=== PATIENT | male | born 1945 | race Caucasian/White ===

== ENCOUNTER → 2016-09-22 | Day surgery (SDC) | payer OTHER ==
[2016-09-19 10:58] VITALS: Ht 170.2 cm; Wt 84.1 kg
[~2016-09-22] VITALS: Ht 170.2 cm; Wt 84.1 kg
[~2016-09-22] MED LIST: ATROPINE SULFATE 0.1 MG/ML 5ML SYR IV PRN; BUPIVACAINE 0.5 % 5 MG/1 ML MPF 30ML VIAL ONE; BUPIVACAINE/EPINEPHRINE 0.25% 1:200,000 30 ML VIAL ONE; CEFAZOLIN 2000 MG/60 ML D5W IV SCH; DEXAMETHASONE SOD INJ 4 MG/ML VIAL ONE; EpHEDrine SULFATE INJ 50 MG/ML AMP IV PRN; EpHEDrine SULFATE INJ 50 MG/ML AMP ONE; EpINEphrine INJ 1MG/ML AMP 1 MG/ML AMP ONE; FENTANYL CITRATE INJ 50 MCG/1 ML 2 ML VIAL IV PRN; FENTANYL CITRATE INJ 50 MCG/1 ML 2 ML VIAL ONE; FLUMAZENIL 0.1 MG/1 ML 10 ML VIAL IV PRN; GLYCOPYRROLATE INJ 0.2 MG/ML VIAL ONE; HYDR-5688 PO; HYDROCODONE/ACETAMOPHEN 5/325MG TAB PO PRN; HYDROmorphone INJ 2 MG/ML SYR/VIAL IV PRN; LABETALOL HCL IV 5 MG/ML 20ML IV PRN; LACTATED RINGER'S 1000ML 1,000 ML IV SCH; LIDOCAINE HCL 2% 2 ML VIAL (20MG/ML) ONE; LIDOCAINE/EPINEPHRINE 1% INJ 50 ML VIAL ONE; MEPERIDINE HCL 25 MG/ML CARP IV PRN; MIDAZOLAM HCL 1 MG/ML 2ML VIAL ONE; MoRPHine SULFATE 2 MG/ML CARP IV PRN; MoRPHine SULFATE 4 MG/ML 1 ML CARP\\VIAL IV PRN; NALOXONE HCL 0.4 MG/1 ML VIAL/CARP IV PRN; NEOSTIGMINE METHYLSULFATE 5 MG/5 ML SYR ONE; ONDANSETRON INJ 2 MG/ML 2 ML VIAL IV PRN; ONDANSETRON INJ 2 MG/ML 2 ML VIAL ONE; PHENYLEPHRINE 100MCG/ML 5ML SYR IV PRN; PROPOFOL IV EMULSION 10 MG/ML 20 ML VIAL IV ONE; Pt states none; ROCURONIUM BROMIDE 10 MG/ML 5 ML VIAL ONE; ROPIVACAINE 0.5% 5 MG/ML 30 ML VIAL ONE; SODIUM CHLORIDE 0.9% 1000ML 1,000 ML IV SCH; SODIUM CHLORIDE 0.9% INJ 10 ML VIAL ONE
--- NOTE | 2016-09-22 06:49 | History & Physical Bridge Note ---
H&P Re-Evaluation Bridge Note: I have examined the patient, reviewed the History & Physical and in the interval since the performance of the History & Physical I have noted the following changes of clinical significance: No changes noted
--- NOTE | 2016-09-22 13:43 | [facility] Post Operative Brief Note ---
Immediate Operative Summary Operative Date Sep 22, 2016. Pre-Operative Diagnosis Left Shoulder Rotator Cuff Tear Post-Operative Diagnosis supraspinatus and subscapularis Procedure(s) Performed Left Shoulder Arthroscopic Rotator Cuff Repair, Biceps Tenodesis, Subacromial Decompression, coracoplasty Surgeon Dr. Dowling Wheel Tuner Surgeon(s) César Rasmussen MD Estimated Blood Loss 20 ml Findings as above Specimens None Drains 0 Anesthesia general with interscalene block Complication(s) None Disposition Recovery Room / PACU
--- NOTE | 2016-09-22 14:03 | Discharge Instructions-SurgCtr ---
Discharge Instructions Visit Reason for Visit: Left Shoulder Rotator Cuff Tear Discharge Discharge Diagnosis / Problem: status post left rotato cuff repair Discharge Goals Goal(s): Decrease discomfort, Improve function, Increase independence Activity Recommendations Activity Limitations: per Instructions/Follow-up section Anesthesia . Post Anesthesia Instructions: If you have had General Anesthesia or IV Sedation: * Do not drive today. * Resume driving when surgeon permits. * Do not make important decisions or sign legal documents today. * Call surgeon for: 1. Temperature elevations greater than 101 degrees F. 2. Uncontrollable pain. 3. Excessive bleeding. 4. Persistent nausea and vomiting. 5. Medication intolerance (nausea, vomiting or rash). * For nausea and vomiting use only clear liquids such as: tea, soda, bouillon until nausea subsides, then gradually increase diet as tolerated. * If you have any concerns or questions, call your surgeon's office. If physician is unavailable and it is an emergency, call 911 or go to the nearest emergency room. . Instructions / Follow-Up Instructions / Follow-Up The following are instructions to follow after "Shoulder Surgery" including, Acromioplasty, Rotator Cuff Repair and Instability Surgery ACTIVITY RECOMMENDATIONS: * Minimize activity after surgery. * No excessive walking, jogging, sports or laboring. * Return to activity is individualized depending on the patient and type of surgery. * Driving is not permitted until at least your first post operative visit. Please ask your doctor when it is safe to resume driving. * Expect increased discomfort with increased activity. Continue to ice the shoulder as needed. SCHOOL/WORK RECOMMENDATIONS: * You may return to sedentary work or school when you are feeling more comfortable. This is usually 3-7 days after surgery. MEDICATIONS: * You will have a prescription for pain medication and an anti-inflammatory medication after surgery. * Use the pain medication for severe pain and the anti-inflammatory for less severe pain. Once the pain medication has run out, try to use the anti-inflammatory medication. If this is not effective, contact the office for assistance. * The pain medication may cause nausea, constipation and drowsiness. You should see how they affect you before driving or similar activity. * The anti-inflammatory medication may cause stomach upset and bleeding. If this occurs let your doctor know immediately . * Take a stool softener like Colace or a laxative like Senokot to prevent constipation. DIET: * Resume previous diet. SPECIAL CARE: ICE: You have the option of an ice cooler, gel packs or ice bags. * If you have an ice cooler, refer to the instructions for that device. The ice cooler may be used continuously. * If you do not have an ice cooler, you will need to use ice bags or gel packs. Do not apply ice directly to the skin. Use a thin dressing or sachin shirt between the skin and ice bag. Apply ice for 20-30 minutes and repeat every 2-4 hours. This is especially important for the first 7-10 days after surgery. Once the pain improves, use ice as needed. ELEVATION: * You may be more comfortable sleeping in an upright position. Use the sling to elevate your arm. DRESSING: * Your dressing will be changed at your first therapy appointment approximately 4-5 days after surgery. Band-aids, tape strips or gauze may be applied. You may then change your dressing daily. * Reapply dressing followed by the EBIce cooling pad (if chosen) and then the sling. * Always wash your hands prior to touching the incision area. * Once the stitches are removed, you may leave the wound open to air or cover with gauze. * Expect some bloody drainage for the first few days after surgery. * Leave the tape strips, if present, in place for 5-7 days. * Band-aids and gauze may be changed daily. * There may be a gauze pad in your armpit area. This can be changed daily or replaced by a dry washcloth. SLING/BRACE: * You will need to use a sling or brace after surgery. The length of time the sling is used is dependent upon the type of surgery performed. * Arthroscopic Acromioplasty requires use of the sling for 2-4 weeks for comfort. * Labral procedures and Rotator Cuff Repairs require use of the sling for a longer period of time. Please check with your doctor prior to discontinuing the sling. BATHING: * You may shower or sponge-bathe immediately after surgery. The post operative shoulder dressing is mostly water-tight. You may shower right over this dressing, but be reasonably careful not to get the gauze or incision wet. * Once the dressing has been changed on the fourth or fifth day after surgery, you may shower and get the incision wet. * Wash with regular soap and water. * Do not bathe (submerge the incision), soak, swim or use a hot tub until the incision is completely healed over with normal skin and the doctor has given the OK to proceed. * There is no need to apply any ointments, powders or salves to your incision. * Do not apply alcohol or hydrogen peroxide directly to the incision. * Diluted peroxide (50:50 mixture with sterile saline) may be used to clean dried blood from around the incision area. THERAPY: * You will begin therapy four or five days after surgery. * Organized therapy with the therapist is important for the first 2-4 months after surgery depending on the type of procedure. During that time you will attend therapy 1-3 times per week. * You will also need to do daily exercises for range of motion and strength as instructed. * Patients who have a Capsular Shift Procedure will need to abide by temporary range of motion limitations. * Patients having Rotator Cuff Surgery are not allowed to actively lift their arms until 4-6 weeks after surgery. * Please check with your doctor regarding appropriate motion restrictions. FOLLOW UP VISIT: * If not already scheduled, please call the office at to schedule a follow-up appointment for 10 days after surgery and monthly thereafter. * Follow up for physical therapy on 09/26/16 at 10.30 am * Follow up with Dr. Dowling on 10/04/16 at 10.15 am Diet Recommendations Home Diet: no limitations, resume previous diet Procedures Procedures Performed: Left Shoulder Arthroscopic Rotator Cuff Repair, Biceps Tenodesis, Subacromial Decompression, coracoplasty Pending Studies Studies pending at discharge: no Medical Emergencies . Who to Call and When: Medical Emergencies: If at any time you feel your situation is an emergency, please call 911 immediately. . Non-Emergent Contact Non-Emergency issues call your: Surgeon Call Non-Emergent contact if: you have a fever, your pain is not controlled, wound has increased drainage . . "Provider Documentation" section prepared by Shiraz Viera.
--- NOTE | 2016-09-22 14:05 | [facility] Operative Report ---
Operative Report Operative Date Sep 22, 2016. Pre-Operative Diagnosis Left Shoulder Rotator Cuff Tear Post-Operative Diagnosis supraspinatus and subscapularis Procedure(s) Performed Left Shoulder Arthroscopic Rotator Cuff Repair, Biceps Tenodesis, Subacromial Decompression, coracoplasty Surgeon Dr. Dowling Drum Sander Setter Surgeon(s) César Rasmussen MD Estimated Blood Loss 20 ml Specimens None Complication(s) None Disposition PCU I attest to the content of the Intraoperative Record and any orders documented therein. Any exceptions are noted below.
[2016-09-22 14:45] VITALS: TEMP 36.7
--- NOTE | 2016-09-22 15:17 | Anesthesia Progress Nt - [facility] ---
Anesthesia Post Op Note Date & Time Sep 22, 2016 at 15:17 Vital Signs Pain Intensity: 4 Vital Signs Past 12 Hours Date Time Temp Pulse Resp B/P Pulse Ox O2 Delivery O2 Flow Rate FiO2 09/22/16 15:11 69 16 111/71 94 Room Air 09/22/16 14:45 36.7 70 18 105/67 96 Room Air 09/22/16 14:31 70 10 95 09/22/16 14:31 71 10 09/22/16 14:30 71 9 96 09/22/16 14:30 71 9 09/22/16 14:28 117/72 09/22/16 14:25 69 24 91 09/22/16 14:25 70 24 09/22/16 14:25 36.9 72 18 117/72 95 Room Air 09/22/16 14:24 72 20 94 09/22/16 14:24 71 20 09/22/16 14:23 121/70 09/22/16 14:19 70 30 92 09/22/16 14:19 71 30 09/22/16 14:18 120/68 09/22/16 14:15 71 15 95 09/22/16 14:15 71 15 09/22/16 14:13 109/64 09/22/16 14:10 69 20 09/22/16 14:10 69 20 100 09/22/16 14:08 128/72 09/22/16 14:05 72 18 99 09/22/16 14:05 71 18 09/22/16 14:04 74 14 09/22/16 14:04 73 14 99 09/22/16 13:59 75 26 98 09/22/16 13:59 75 26 09/22/16 13:58 118/73 09/22/16 13:56 36.5 73 20 119/76 99 Mask 8 09/22/16 13:55 119/76 09/22/16 09:24 0 09/22/16 09:24 0 09/22/16 09:19 54 10 09/22/16 09:19 54 10 97 09/22/16 09:18 117/72 09/22/16 09:14 53 14 97 09/22/16 09:14 53 14 09/22/16 09:13 111/78 09/22/16 09:09 54 13 97 09/22/16 09:09 54 13 09/22/16 09:08 112/76 09/22/16 09:04 54 11 97 09/22/16 09:04 54 11 09/22/16 09:03 111/75 09/22/16 09:01 58 21 09/22/16 09:01 56 21 96 09/22/16 08:58 107/71 09/22/16 08:56 54 8 97 09/22/16 08:56 53 8 09/22/16 08:54 113/81 09/22/16 08:51 58 17 97 09/22/16 08:51 57 17 09/22/16 08:48 104/79 09/22/16 08:46 55 12 09/22/16 08:46 56 12 97 09/22/16 08:43 122/83 09/22/16 08:41 58 44 09/22/16 08:41 57 44 96 09/22/16 08:38 119/74 09/22/16 08:36 54 14 09/22/16 08:36 54 14 96 09/22/16 08:33 112/79 09/22/16 08:31 58 25 09/22/16 08:31 58 25 96 09/22/16 08:28 121/76 09/22/16 08:26 56 24 96 09/22/16 08:26 56 24 09/22/16 08:23 111/75 09/22/16 08:21 55 19 96 09/22/16 08:21 56 19 09/22/16 08:18 123/82 09/22/16 08:16 57 11 09/22/16 08:16 58 11 96 09/22/16 08:13 122/77 09/22/16 08:11 59 15 96 09/22/16 08:11 59 15 09/22/16 08:08 113/72 09/22/16 08:06 60 18 09/22/16 08:06 60 18 97 09/22/16 08:03 116/81 09/22/16 08:01 57 25 09/22/16 08:01 56 25 96 09/22/16 07:58 101/76 09/22/16 07:56 56 17 97 09/22/16 07:56 56 17 09/22/16 07:53 121/82 09/22/16 07:51 51 14 97 09/22/16 07:51 51 14 09/22/16 07:48 119/81 09/22/16 07:46 58 19 96 09/22/16 07:46 58 19 09/22/16 07:44 137/97 09/22/16 07:41 55 09/22/16 07:41 54 96 09/22/16 07:36 55 97 09/22/16 07:36 56 09/22/16 07:35 57 09/22/16 07:35 57 96 09/22/16 07:30 54 09/22/16 07:30 54 96 09/22/16 07:25 55 09/22/16 07:25 56 97 09/22/16 07:20 55 09/22/16 07:20 54 95 09/22/16 07:15 55 09/22/16 07:15 55 96 09/22/16 07:10 56 09/22/16 07:10 57 97 09/22/16 06:40 36.8 61 16 142/86 96 Room Air Notes Mental Status: alert / awake / arousable, participated in evaluation Pt Amnestic to Procedure: Yes Nausea / Vomiting: adequately controlled Pain: adequately controlled Airway Patency, RR, SpO2: stable & adequate BP & HR: stable & adequate Hydration State: stable & adequate Anesthetic Complications: no major complications apparent
[2016-09-22 15:48] VITALS: BP 111/67; PULSE 71; O2SAT 94
--- NOTE | 2016-09-23 02:17 | OPERATIVE REPORT ---
DATE OF OPERATION: 09/22/2016 PREOPERATIVE DIAGNOSES: Left shoulder supraspinatus tear, biceps tendon subluxation, possible the subscapularis tear. POSTOPERATIVE DIAGNOSES: The biceps tendon subluxation 1.5 cm tear, upper border subscapularis, 2 to 2.5 cm tear of the supraspinatus extending into the leading edge of the infraspinatus. PROCEDURE: Left shoulder arthroscopy, limited debridement, biceps tenodesis, coracoplasty, arthroscopic double row repair of the supraspinatus and infraspinatus tendon and a mini open biceps tenodesis and repair of the subscapularis. Arthroscopic subacromial decompression and debridement of undersurface AC joint osteophytes. SURGEON: Dr. Dowling. PAINT PREPARER: Shiraz Voss, Fellow. No PA available. ANESTHESIA: Laryngeal mask with interscalene block. INDICATIONS OF PROCEDURE: The patient is a 70-year-old male with at least a 2-year history of left shoulder pain, status post an injury. MRI has diagnosed a medium rotator cuff tear. Options were discussed and he elected to proceed with operative intervention. PROCEDURE IN DETAIL: Informed consent was obtained. The patient was identified as Tino Espinal. He identified the operative site as the left shoulder. I marked it with my initials. A preop surgical timeout was performed. A preop dose of IV antibiotics was given. He was taken to the operating room and positioned supine on the operating room table. The anesthetic was administered along with the interscalene block. He was then positioned beach chair. The neck was held in neutral alignment. The [employer] body positioner and Trimano arm holders were utilized. The torso was secured to the table. Examination revealed grade 1 translation of the shoulder, front and back, and full and equal range of motion. 1% lidocaine with epinephrine was injected into the subacromial space, approximately 10 mL. The left upper extremity was then prepped and draped in the usual sterile fashion. The axilla was excluded from the surgical field with a Ioban drape. After the arthroscopic portion of the procedure, the shoulder was re-prepped and the surgeon changed his glove. DVT prophylaxis, intraoperatively with foot pumps, postoperatively early mobility. Posterior soft spot viewing portal was established followed by an anterior mid glenoid working portal. Diagnostic arthroscopy was performed. There was some grade 2 chondrosis of a small area, perhaps the size of a nickel, on the humeral head. There was global labral degeneration, which was debrided. The frayed portion of the labrum was debrided. A medium sized tear of the supraspinatus, likely extending into the infraspinatus, was noted. The subscapularis was noted to have a tear along its upper border. The biceps was released. The middle and inferior glenohumeral ligaments and capsule looked normal. There was a degenerative type 1 SLAP lesion present. There was fraying of the posterior superior labrum, which was debrided. The posterior capsule was normal. The scope was placed anterior to visualize the posterior structures. The glenoid showed, perhaps, grade 1 diffuse changes. The axillary pouch, bare area and posterior surface of the humerus were intact. The capsule was normal. The scope was then placed in the subacromial space and an accessory lateral portal was created. Subacromial bursectomy was performed. An additional anterolateral portal was established. A rotator cuff tear, involving the supraspinatus that was between 2 and 2.5 cm in size, was noted. This was a crescent tear with a posterior delamination involving the infraspinatus. There was a prominent excrescence on the anterior portion of the greater tuberosity. This was debrided with the bur and the bony bed was completely denuded of soft tissue with a shaver, curette and debrided with the bur as well. Two 5.5-0mm PEEK corkscrew anchors were inserted, one at the junction of the middle and posterior third and one at the junction of the middle and anterior third of the tear. These were located just lateral to the articular cartilage margin and placed at an angle of about 30 degrees to the long axis of the bone. These were placed in a percutaneous fashion. Horizontal mattress sutures were then applied, using either a scorpion suture passer or a shallow crescent hook suture shuttle. Care was taken to incorporate the posterior delamination with the posterior suture anchor. This was done additionally with the use of a traction stitch on the undersurface delamination. All sutures were passed in a horizontal mattress fashion and then tied in a tension free fashion, using a modified Mcnairy knot backed up with reverse half hitches on alternating posts. A lateral row anchor was inserted. This was a 5.5 mm SwiveLock anchor, which was applied about a centimeter distal to the edge of the greater tuberosity. This resulted in a secure anatomic repair. There was a small dog ear, which was tied down posteriorly with the central retaining stitch from the SwiveLock. The undersurface of the acromion was denuded of soft tissue and a modified cutting block acromioplasty was performed. There was significantly thickened tissue on the undersurface of the acromion, consistent with chronic impingement. About 3 to 4 mm of anterior bone was removed, smoothed from back to front and side to side, lateral overhang was debrided. The coracoacromial ligament was released. I identified the AC joint and using a shaver and cold cut, exposed the undersurface of the AC joint where there was a large spur. This spur was removed with the shaver and also any spurring on the acromial facet. The patient did not have AC joint pain preoperatively, but this large spur may have impacted on his rotator cuff. The shaver was run through the shoulder to grape picker loose debris. [employer] photographs were obtained. The portals were then stitched close, the surgeon changed gloves and then the shoulder was re-prepped with ChloraPrep. The anterior incision was lengthened about 6 to 7 cm. Blunt dissection was performed down to the subcutaneous tissues, a large transversing vein was electrocauterized. The fat stripe was noted and opened, exposing the deltopectoral interval. The cephalic vein was retracted medially with up pectoralis tendon. The clavipectoral fascia was incised. The upper 1 cm of the conjoined tendon was released. The tip of the coracoid was exposed and then obliquely resected with a saw and beveled with a rasp. A thorough subacromial bursectomy was performed. The bicipital groove was identified and opened, the biceps tendon was retrieved. The bicipital groove was prepared down to a bed of bleeding bone with a curette and rongeur and then a tenodesis was performed at the proper length and tension relationship, using a single 4.5-mm PEEK corkscrew anchor. The biceps itself appeared to be normal. The in situ tear involving the upper 1.5 to 2 cm of the subscapularis tendon was noted. The rotator interval was released and some adhesions on the anterior surface of the tendon were divided. The tear was not retracted. The bone bed of the lesser tuberosity was prepared with a curette and rongeur down to an exposed bed of bleeding bone. A single 5.5 mm PEEK corkscrew anchor was inserted and the subscapularis was repaired using 2 horizontal mattress stitches. I then tied the bicipital fascia to the lateral margin of the subscapularis covering over the biceps tendon. #1 Vicryl was used to do this as well as reapproximate the subscapularis and supraspinatus laterally. Copious irrigation was performed. Meticulous hemostasis was done with electrocautery. The retractors were removed and the deltopectoral interval was closed using running #1 Vicryl, the skin was closed with 2-0 Vicryl and boris for the skin layer. A soft sterile dressing was applied with an ABD in the armpit along with an UltraSling. The patient was awakened from anesthesia without difficulty, taken to recovery in stable condition. There were no specimens or complications. Counts were correct at the end of case. Blood loss was approximately 50 mL. At the conclusion of the operation, I spoke to the patient's family and informed them of my findings. Detailed postoperative instructions were given. He can be rehabilitated according to the rotator cuff repair protocol. He will need to do passive movement of the elbow and shoulder for 6 weeks. External rotation will be restricted to neutral for the first 4-6 weeks. I attest to the content of the Intraoperative Record and any orders documented therein. Any exceptio ns are noted below.
== END | disposition home or self-care (01) ==
LOC: X.SURG 06:30
PROVIDERS: ATTEND Physical Medicine & Rehabilitation Sports Medicine
DX: M75.112 Incomplete rotator cuff tear or rupture of left shoulder, not specified as traumatic (principal); M66.822 Spontaneous rupture of other tendons, left upper arm; M25.70 Osteophyte, unspecified joint; C61 Malignant neoplasm of prostate; M35.3 Polymyalgia rheumatica; Z85.828 Personal history of other malignant neoplasm of skin; Z98.890 Other specified postprocedural states

== ENCOUNTER → 2016-10-04 | Outpatient (CLI) | payer OTHER ==
[~2016-10-04] MED LIST changes: -ATROPINE SULFATE 0.1 MG/ML 5ML SYR IV PRN; -BUPIVACAINE 0.5 % 5 MG/1 ML MPF 30ML VIAL ONE; -BUPIVACAINE/EPINEPHRINE 0.25% 1:200,000 30 ML VIAL ONE; -CEFAZOLIN 2000 MG/60 ML D5W IV SCH; -DEXAMETHASONE SOD INJ 4 MG/ML VIAL ONE; -EpHEDrine SULFATE INJ 50 MG/ML AMP IV PRN; -EpHEDrine SULFATE INJ 50 MG/ML AMP ONE; -EpINEphrine INJ 1MG/ML AMP 1 MG/ML AMP ONE; -FENTANYL CITRATE INJ 50 MCG/1 ML 2 ML VIAL IV PRN; -FENTANYL CITRATE INJ 50 MCG/1 ML 2 ML VIAL ONE; -FLUMAZENIL 0.1 MG/1 ML 10 ML VIAL IV PRN; -GLYCOPYRROLATE INJ 0.2 MG/ML VIAL ONE; -HYDROCODONE/ACETAMOPHEN 5/325MG TAB PO PRN; -HYDROmorphone INJ 2 MG/ML SYR/VIAL IV PRN; -LABETALOL HCL IV 5 MG/ML 20ML IV PRN; -LACTATED RINGER'S 1000ML 1,000 ML IV SCH; -LIDOCAINE HCL 2% 2 ML VIAL (20MG/ML) ONE; -LIDOCAINE/EPINEPHRINE 1% INJ 50 ML VIAL ONE; -MEPERIDINE HCL 25 MG/ML CARP IV PRN; -MIDAZOLAM HCL 1 MG/ML 2ML VIAL ONE; -MoRPHine SULFATE 2 MG/ML CARP IV PRN; -MoRPHine SULFATE 4 MG/ML 1 ML CARP\\VIAL IV PRN; -NALOXONE HCL 0.4 MG/1 ML VIAL/CARP IV PRN; -NEOSTIGMINE METHYLSULFATE 5 MG/5 ML SYR ONE; -ONDANSETRON INJ 2 MG/ML 2 ML VIAL IV PRN; -ONDANSETRON INJ 2 MG/ML 2 ML VIAL ONE; -PHENYLEPHRINE 100MCG/ML 5ML SYR IV PRN; -PROPOFOL IV EMULSION 10 MG/ML 20 ML VIAL IV ONE; -ROCURONIUM BROMIDE 10 MG/ML 5 ML VIAL ONE; -ROPIVACAINE 0.5% 5 MG/ML 30 ML VIAL ONE; -SODIUM CHLORIDE 0.9% 1000ML 1,000 ML IV SCH; -SODIUM CHLORIDE 0.9% INJ 10 ML VIAL ONE
== END | disposition home or self-care (01) ==
LOC: C.RDSM 10-03 10:30
PROVIDERS: ATTEND Physical Medicine & Rehabilitation Sports Medicine
DX: M75.102 Unspecified rotator cuff tear or rupture of left shoulder, not specified as traumatic (principal)

== ENCOUNTER → 2016-10-07 | Outpatient (CLI) | payer OTHER ==
--- NOTE | 2016-10-12 12:58 | CODING QUERY MEDICAL NECESSITY ---
SUPPORTING DIAGNOSIS NEEDED A supporting diagnosis is required for the test/procedure performed on this patient in order for us to be reimbursed by the patient's insurance. Please provide a supporting diagnosis for the following test/procedure listed below next to the test name along with your signature. *If there is no additional diagnosis for this patient that would support the following test/procedure please document that below next to the test/procedure. Test(s)/Procedure(s) that require a supporting diagnosis: * PSA DIAGNOSIS: * DOS: 10/07/16 Provider Signature: Date: Thank you Ara Alcocer [employer] Once completed, please kindly fax back to [phone] For questions please call [phone]
== END | disposition home or self-care (01) ==
LOC: C.LAB 08:59
PROVIDERS: ATTEND Surgery
DX: R39.198 Other difficulties with micturition (principal); C61 Malignant neoplasm of prostate; R97.20 Elevated prostate specific antigen [PSA]

== ENCOUNTER → 2016-10-20 | Outpatient (CLI) | payer OTHER ==
[2016-10-20 09:42] LABS: BLOOD UREA NITROGEN 21 mg/dl (7-18); BUN/CREATININE RATIO 18.7 (10-20); CALCIUM 9.1 mg/dl (8.5-10.1); CARBON DIOXIDE 26 mmol/L (21-32); CHLORIDE 104 mmol/L (98-107); GLUCOSE 99 mg/dl (70-99); POTASSIUM 3.9 mmol/L (3.5-5.1); SODIUM 137 mmol/L (136-145)
[2016-10-20 09:56] LABS: ESTIMATED AVERAGE GLUCOSE 117 mg/dl; HA1C FLAG Normal (Normal)
--- NOTE | 2016-10-24 13:30 | CODING QUERY MEDICAL NECESSITY ---
SUPPORTING DIAGNOSIS NEEDED A supporting diagnosis is required for the test/procedure performed on this patient in order for us to be reimbursed by the patient's insurance. Please provide a supporting diagnosis for the following test/procedure listed below next to the test name along with your signature. *If there is no additional diagnosis for this patient that would support the following test/procedure please document that below next to the test/procedure. Test(s)/Procedure(s) that require a supporting diagnosis: DOS 10/20 * Hba1c DIAGNOSIS: Provider Signature: Date: Thank you Makeda Johnson Health Information Management Once completed, please kindly fax back to [phone] For questions please call [phone]
== END | disposition home or self-care (01) ==
LOC: C.LAB 07:34
PROVIDERS: ATTEND Internal Medicine
DX: E88.81 Metabolic syndrome and other insulin resistance (principal); E11.9 Type 2 diabetes mellitus without complications

== ENCOUNTER → 2016-10-31 | Outpatient (CLI) | payer OTHER ==
--- NOTE | 2016-10-31 16:16 | DIAGNOSTIC IMAGING REPORT ---
CHEST 2 VIEWS ROUTINE CLINICAL HISTORY: COUGH dyspnea COMPARISON STUDY: 10/03/2012 FINDINGS: The bones soft tissues and hemidiaphragms are normal. The cardiomediastinal silhouette is normal. The lungs are clear. The pulmonary vasculature is normal. IMPRESSION: Negative chest. Electronically signed by: Anil Jernigan M.D. 10/31/2016 4:15 PM Dictated Date/Time: 10/31/2016 4:14 PM
== END | disposition home or self-care (01) ==
LOC: C.RAD 15:47
PROVIDERS: ATTEND Internal Medicine
DX: R05 Cough (principal)

== ENCOUNTER → 2017-03-15 | Outpatient (CLI) | payer OTHER ==
[2017-03-15 13:19] VITALS: BP 126/81; PULSE 68; TEMP 37; O2SAT 96
--- NOTE | 2017-03-15 17:33 | Radiation Oncology Follow-Up ---
Radiation Oncology Follow-Up Date of Visit Mar 15, 2017. Reason For Visit Annual follow-up Radiation Completion Date Hormonal suppression and RT 08/01/13 Diagnosis (1) Prostate cancer Status: Resolved Onset Date: 08/29/2011 Location: prostate with extension to seminal vesicles Histology Subtype: adenocarcinoma Stage: lll Permanent Comment: Rising PSA Biopsy-positive for adenocarcinoma the prostate, Mariola grade 4+5, clinical stage TIc Biopsy stage T2b Status post robotic-assisted laparoscopic radical prostatectomy with left-sided pelvic lymph node dissection an attempted right sided pelvic lymph node dissection, adenocarcinoma of the prostate with Mariola 4+5, extraprostatic extension, seminal vesicle invasion, perineural invasion, Pathologic stage [id number] Status post hormone suppression for 6 months Status post completion of radiation therapy 08/01/2013 received 7000 cGy Last Edited By: Lizbeth Mcdaniel on Mar 13, 2015 07:43 Interim History He's been doing well over this past year. He denies any changes in his urinary status. His AUA score was 11. Last year his score was 8. He completed expanded prostate cancer index composite for clinical practice and gave a score of 4 out of 12 in urinary incontinence symptoms. He gave a score of 2 of 12 and urinary irritation symptoms. He gave a score of 0 12 and bowel symptoms. He gave a score for of 12 and sexual symptoms. He gave a score of 0 of 12 in hormonal vitality symptoms. His total was 10 of 60. His PSAs continue to be undetectable. Most recent PSA was 10/07/2016 and was less than 0.010. Allergies Coded Allergies: No Known Allergies (Verified , `, 09/22/16) Home Medications Miscellaneous Medications [Pt states none] Review of Systems Gastrointestinal: Symptoms: WNL GI Comments: No fiber supplements Oral: Symptoms: No Problems Respiratory: Symptoms: WNL Urinary: Symptoms: WNL, Incontinence Comments: 1 void/night;Doesn't feel he always empties bladder; Skin: Symptoms: No Problems Physical Exam Vital Signs Date Time Temp Pulse Resp B/P (MAP) Pulse Ox O2 Delivery O2 Flow Rate FiO2 03/15/17 13:19 37.0 68 24 126/81 96 Fatigue: None General Appearance: no apparent distress Eyes: normal inspection, EOMI ENT: normal ENT inspection, hearing grossly normal Neck: no adenopathy, thyroid normal Respiratory/Chest: lungs clear, no respiratory distress, no accessory muscle use Cardiovascular: regular rate, rhythm, no gallop, no murmur Abdomen: non tender, soft Anal / Rectum: Normal sphincter tone. Prostate bed is flat. No rectal masses no rectal bleeding. Extremities: no pedal edema Neurologic/Psychiatric: no motor/sensory deficits, alert, normal mood/affect Skin: warm/dry Laboratory Studies Test 03/15/17 14:00 Prostate Specific Antigen < 0.010 ng/ml (0.000-4.000) Assessment & Plan Plan: A PSA was drawn today. He'll be notified as to results. Continue regular follow-up with Dr. Xavier and his primary care physician. We asked him to return to our office in 1 year. He may call if he has any questions or concerns in the interim. He is due for follow-up DEXA scanning. I will be reviewed with him and scheduled accordingly. Total Time In Follow-Up I spent 20 minutes speaking to the patient and performing examination. I spent 15 minutes reviewing information and completing this note Copy To Humphrey Xavier MD, Urology; Ponce Monique M.D.
== END | disposition home or self-care (01) ==
LOC: C.ONC 13:07
PROVIDERS: ATTEND Physician Assistant Medical
DX: Z08 Encounter for follow-up examination after completed treatment for malignant neoplasm (principal); Z92.3 Personal history of irradiation; Z85.46 Personal history of malignant neoplasm of prostate

== ENCOUNTER → 2017-03-17 | Outpatient (CLI) | payer OTHER ==
[~2017-03-17] MED LIST changes: -HYDR-5688 PO
== END | disposition home or self-care (01) ==
LOC: C.RDSM 12:50
PROVIDERS: ATTEND Physical Medicine & Rehabilitation Sports Medicine
DX: M25.561 Pain in right knee (principal); M25.562 Pain in left knee

== ENCOUNTER → 2017-03-30 | Outpatient (CLI) | payer OTHER | END | disposition home or self-care (01) | LOC: C.MAMM 09:53 | PROVIDERS: ATTEND Physician Assistant Medical | DX: C61 Malignant neoplasm of prostate (principal); M85.89 Other specified disorders of bone density and structure, multiple sites; E34.9 Endocrine disorder, unspecified ==

== ENCOUNTER → 2017-09-04 | Outpatient (CLI) | payer OTHER | END | disposition home or self-care (01) | LOC: C.RDSM 12:44 | PROVIDERS: ATTEND Physical Medicine & Rehabilitation Sports Medicine | DX: R22.30 Localized swelling, mass and lump, unspecified upper limb (principal) ==

== ENCOUNTER → 2017-09-07 | Day surgery (SDC) | payer OTHER ==
[2017-08-29 08:43] VITALS: Ht 170.2 cm; Wt 79.1 kg
[~2017-09-07] VITALS: Ht 170.2 cm; Wt 79.1 kg
[~2017-09-07] MED LIST changes: +ATROPINE SULFATE 0.1 MG/ML 5ML SYR IV PRN; +CEFAZOLIN 1000MG IV PUSH 5 ML IV SCH; +EpHEDrine SULFATE INJ 50 MG/ML AMP IV PRN; +FENTANYL CITRATE INJ 50 MCG/1 ML 2 ML VIAL IV PRN; +FENTANYL CITRATE INJ 50 MCG/1 ML 2 ML VIAL ONE; +HYDROCODONE/ACETAMOPHEN 5/325MG TAB PO PRN; +LACTATED RINGER'S 1000ML 1,000 ML IV SCH; +LIDOCAINE HCL 2% 2 ML VIAL (20MG/ML) ONE; +MIDAZOLAM HCL 1 MG/ML 2ML VIAL ONE; +ONDANSETRON INJ 2 MG/ML 2 ML VIAL IV PRN; +PROPOFOL IV EMULSION 10 MG/ML 20 ML VIAL IV ONE; -Pt states none
[2017-09-07] MEDS: LIDOCAINE/EPINEPHRINE 1% 20 ML VIAL ONE ×2 (06:34→07:50)
--- NOTE | 2017-09-07 06:57 | Discharge Instructions-SurgCtr ---
Discharge Instructions Date of Service Sep 07, 2017. Visit Reason for Visit: Left Carpal Tunnel Syndrome; Ring Finger Mass Discharge Discharge Diagnosis / Problem: left carpal tunnel syndrome Discharge Goals Goal(s): Decrease discomfort, Improve function Activity Recommendations Activity Limitations: per Instructions/Follow-up section Lifting Limitations: none Exercise/Sports Limitations: none Shower/Bathe: may shower/bathe in 3 days Weightbearing Status: Left non-weightbearing Anesthesia . Post Anesthesia Instructions: If you have had General Anesthesia or IV Sedation: * Do not drive today. * Resume driving when surgeon permits. * Do not make important decisions or sign legal documents today. * Call surgeon for: 1. Temperature elevations greater than 101 degrees F. 2. Uncontrollable pain. 3. Excessive bleeding. 4. Persistent nausea and vomiting. 5. Medication intolerance (nausea, vomiting or rash). * For nausea and vomiting use only clear liquids such as: tea, soda, bouillon until nausea subsides, then gradually increase diet as tolerated. * If you have any concerns or questions, call your surgeon's office. If physician is unavailable and it is an emergency, call 911 or go to the nearest emergency room. . Instructions / Follow-Up Instructions / Follow-Up DIET: * Resume previous diet. MEDICATIONS: * Please take your prescriptions as instructed at your pre-op appointment and/ or see medication discharge instructions listed above. * If concerns develop, call your physician's office at . SPECIAL CARE INSTRUCTIONS: * Ice/Elevate as instructed. * Keep dressing clean, dry, intact. * Your surgical extremity may be discolored due to prepping agents used on the skin. A bluish-green tint is a normal variant and should not cause alarm. Call your doctor at [phone] if: * Temperature above 101 degrees * Pain not relieved by pain medicine ordered * There is increased drainage or redness from any incision * You have any unanswered questions, problems or concerns. FOLLOW UP VISIT: * If not already scheduled, please call the office at to schedule a follow-up appointment. Diet Recommendations Home Diet: no limitations, resume previous diet Pending Studies Studies pending at discharge: no Medical Emergencies . Who to Call and When: Medical Emergencies: If at any time you feel your situation is an emergency, please call 911 immediately. . Non-Emergent Contact Non-Emergency issues call your: Primary Care Provider . . "Provider Documentation" section prepared by Edmundo Montes. .
[2017-09-07] MEDS: BUPIVACAINE/EPINEPHRINE 0.5% MPF 1:200,000 30 ML VIAL ONE ×2 (07:50→07:51)
--- NOTE | 2017-09-07 07:53 | [facility] Post Operative Brief Note ---
Immediate Operative Summary Operative Date Sep 07, 2017. Pre-Operative Diagnosis Left Carpal Tunnel Sydrome, Left Ring Finger Mass Post-Operative Diagnosis same Procedure(s) Performed Left Carpal Tunnel Release; Left Ring Finger Mass Excision Surgeon Dr. Dowling Lift Team Technician Surgeon(s) Dr. Montes Estimated Blood Loss 1 Findings as above Specimens A) Foreign Body Left Ring Finger Anesthesia local with IV sedation Disposition Recovery Room / PACU
[2017-09-07 08:00] VITALS: TEMP 36.4
[2017-09-07 08:32] VITALS: BP 112/71; PULSE 50; O2SAT 100
--- NOTE | 2017-09-07 08:39 | Anesthesia Progress Nt - [facility] ---
Anesthesia Post Op Note Date & Time Sep 07, 2017 at 08:39 Vital Signs Pain Intensity: 0 Vital Signs Past 12 Hours Date Time Temp Pulse Resp B/P (MAP) Pulse Ox O2 Delivery O2 Flow Rate FiO2 09/07/17 08:32 50 16 112/71 (85) 100 Room Air 09/07/17 08:00 36.4 52 16 109/67 (81) 96 Room Air 09/07/17 06:34 36.9 55 16 147/91 (109) 96 Room Air Notes Mental Status: alert / awake / arousable, participated in evaluation Pt Amnestic to Procedure: Yes Nausea / Vomiting: adequately controlled Pain: adequately controlled Airway Patency, RR, SpO2: stable & adequate BP & HR: stable & adequate Hydration State: stable & adequate Anesthetic Complications: no major complications apparent
--- NOTE | 2017-09-07 08:42 | OPERATIVE REPORT ---
DATE OF OPERATION: 09/07/2017 PREOPERATIVE DIAGNOSES: Left carpal tunnel syndrome and possible mass, left ring finger. POSTOPERATIVE DIAGNOSES: Same. PROCEDURES: Open left carpal tunnel release and left ring finger excisional biopsy. SURGEON: Dr. Luis Dowling. BAND SPLITTER: Edmundo Montes, fellow. No PA was available. ANESTHESIA: Local with IV sedation. INDICATIONS OF PROCEDURE: The patient is a 71-year-old male with severe left carpal tunnel syndrome, refractory to nonsurgical methods of management and he wished to have surgery done. Additionally he has noted possibly a piece of glass just distal to the DIP joint flexion crease on the ulnar side of the left ring finger. He wishes to have this excised. It had been identified by ultrasound, but it was not palpable clinically by the examiner nor is it visible on x-ray. PROCEDURE IN DETAIL: Informed consent was obtained. The patient was identified as Michael Espinal. He identified the operative site as the left ring finger and left carpal tunnel. A preop surgical time out was performed and a preop dose of IV antibiotics was given. He was taken to the operating room and positioned supine on the operating room table. IV sedation was given followed by a carpal tunnel and digital block using 10 mL of 1% lidocaine with epinephrine and 0.5% Marcaine with epinephrine. The examination under anesthesia revealed no discrete palpable masses involving the finger. The arm was prepped and draped in the usual sterile fashion. DVT prophylaxis will be done with early patient mobility. The patient was positioned supine on the OR table with the left arm on a hand table and a tourniquet on the left arm. The limb was exsanguinated with the Esmarch and tourniquet inflated to 225 mmHg. A midline incision was made beginning at Waddell's cardinal line and proceeding just short into the main distal transverse wrist crease. The longitudinal palmar crease was utilized. Blunt dissection was performed down to subcutaneous tissues and superficial fascia until the transverse carpal ligament was identified. The fat at the distal extent of the ligament was identified and a retractor was inserted. Just proximal to this, there was noted a small muscle about a cm in size. This was bluntly dissected off of the transverse carpal ligament and represented a small muscular anomaly. The transverse carpal ligament was then released up into the distal forearm fascia in line with the third webspace. This was done under direct visualization with the knife and tenotomy scissors. The contents of the carpal canal, the nerve tendons and tenosynovium looked normal. The wound was irrigated with sterile saline. A good decompression was obtained proximally and distally. The wound was then closed with interrupted 4-0 nylon horizontal mattress stitches. Attention was turned to the left ring finger. He had previously marked the location of the lesion. I made an ellipsoid incision just to the ulnar side of midline distal to the DIP joint flexion crease. This was longitudinal by a cm in size and I ellipsed out the area where that he had marked and carried this down to the skin and into the subcutaneous tissues. I did not feel anything before making the incision and upon removing the piece, I cannot definitively say that there was anything in it. I dissected deeper to remove the deeper tissue carefully down to the level of the flexor tendon sheath in this same area. It is possible that the small nerve branch could have been sacrificed during this somewhat on block excision. Prior to doing this, I did dissect ulnarward and identified the main neurovascular bundle. After removal of this, I palpated along the margins of the skin and noted some thickening on the radial side of our incision. I went ahead and sharply excised some additional dermal layer about a 0.5 cm in length. I then repalpated and I found nothing along the margins or deep. The wound was then irrigated and closed with simple nylon sutures, 4-0 nylon. A soft sterile dressing was utilized and the tourniquet was let down after approximately 25 minutes of inflation. He was then awakened from anesthesia without difficulty and taken to the recovery room in stable condition. The resected tissue from the left ring finger was sent for specimen. There were no complications. Counts were correct at the end of the case. Blood loss was minimal. At the conclusion of the operation, I spoke to the patient's family and informed them of my findings. Postoperative instructions were given. He will be in for a dressing change early next week and he will be able to do early active movement and rehabilitation according to our typical carpal tunnel plan. I attest to the content of the Intraoperative Record and any orders documented therein. Any exception s are noted below.
== END | disposition home or self-care (01) ==
LOC: X.SURG 06:19
PROVIDERS: ATTEND Physical Medicine & Rehabilitation Sports Medicine
DX: G56.02 Carpal tunnel syndrome, left upper limb (principal); S60.455A Superficial foreign body of left ring finger, initial encounter; X58.XXXA Exposure to other specified factors, initial encounter; M19.90 Unspecified osteoarthritis, unspecified site; Z85.46 Personal history of malignant neoplasm of prostate

== ENCOUNTER → 2017-12-20 | Outpatient (CLI) | payer OTHER ==
[2017-12-20 10:01] LABS: BLOOD UREA NITROGEN 16 mg/dl (7-18); CREATININE 1.12 mg/dl (0.60-1.40)
== END | disposition home or self-care (01) ==
LOC: C.LAB 07:20
PROVIDERS: ATTEND Urology
DX: R39.198 Other difficulties with micturition (principal)

== ENCOUNTER → 2018-03-20 | Outpatient (CLI) | payer OTHER ==
--- NOTE | 2018-03-20 13:53 | DIAGNOSTIC IMAGING REPORT ---
MRI OF THE LEFT KNEE WITHOUT CONTRAST CLINICAL HISTORY: Medial left knee pain and swelling. COMPARISON STUDY: Left knee radiograph March 13, 2018. TECHNIQUE: Utilizing a 1.5 Ronna magnet and dedicated coil, multiplanar, multiecho imaging of the left knee was performed without intravenous or intraarticular contrast. FINDINGS: Alignment of the left knee is anatomic. A small left knee joint effusion is present. Extensor mechanism is intact. The anterior and posterior cruciate ligaments are intact. The medial collateral ligament and lateral collateral ligament complex are intact. Note is made of an oblique tear of the body and posterior horn of the medial meniscus. There is also a subtle free edge tear of the body of the lateral meniscus. Note is made of a subchondral linear hypointense focus within the medial aspect of the medial tibial plateau shown on coronal proton density image 20 of 28 suggestive of a subchondral fracture. There is moderate marrow edema within the medial tibial plateau as well as moderate edema within the adjacent soft tissues. There is moderate chondrosis of the medial patellar cartilage. There is moderate chondrosis within the medial compartment. IMPRESSION: 1. Nondisplaced subchondral fracture of the medial tibial plateau with moderate associated marrow and soft tissue edema. 2. Oblique tear of the body and posterior horn of the medial meniscus. Free edge tear of the anterior horn of the lateral meniscus. 3. Intact cruciate and collateral ligament. 4. Small left knee joint effusion. 5. Moderate medial and patellofemoral compartment chondrosis. Electronically signed by: Octavio Wolff M.D. 03/20/2018 1:52 PM Dictated Date/Time: 03/20/2018 1:42 PM
== END | disposition home or self-care (01) ==
LOC: C.MRI 12:55
PROVIDERS: ATTEND Physician Assistant
DX: S82.002A Unspecified fracture of left patella, initial encounter for closed fracture (principal); S83.242A Other tear of medial meniscus, current injury, left knee, initial encounter; X58.XXXA Exposure to other specified factors, initial encounter; M11.262 Other chondrocalcinosis, left knee

== ENCOUNTER → 2018-04-05 | Day surgery (SDC) | payer OTHER ==
[2018-03-27 09:21] VITALS: Ht 170.2 cm; Wt 81.8 kg
[~2018-04-05] VITALS: Ht 170.2 cm; Wt 81.8 kg
[~2018-04-05] MED LIST changes: +ATROPINE SO4 1 MG/ML 1ML VIAL ONE; -CEFAZOLIN 1000MG IV PUSH 5 ML IV SCH; +EpHEDrine SULFATE INJ 50 MG/ML AMP ONE; +GLYCOPYRROLATE INJ 0.2 MG/ML VIAL ONE; +HYDR-5688 PO; -HYDROCODONE/ACETAMOPHEN 5/325MG TAB PO PRN; +KETOROLAC TROMETHAMINE 30 MG/ML VIAL IV. PRN; +LIDOCAINE/EPINEPHRINE 1% 20 ML VIAL ONE; +LVNIS30 SC; +MoRPHine SULFATE 2 MG/ML CARP IV PRN; +MoRPHine SULFATE 4 MG/ML 1 ML CARP\\VIAL IV PRN; +ONDANSETRON INJ 2 MG/ML 2 ML VIAL ONE; +OXYCODONE/ACETAMINOPHEN 5-325 TAB PO PRN; -PROPOFOL IV EMULSION 10 MG/ML 20 ML VIAL IV ONE; +PROPOFOL IV EMULSION 10 MG/ML 20 ML VIAL ONE; +SODIUM CHLORIDE 0.9% 1000ML 1,000 ML IV SCH; +SODIUM CHLORIDE 0.9% INJ 10 ML VIAL ONE
[2018-04-05] MEDS: CEFAZOLIN 2000MG IV PUSH 15 ML IV SCH ×2 (07:03→07:10)
--- NOTE | 2018-04-05 08:03 | Discharge Instructions-SurgCtr ---
Discharge Instructions Date of Service Apr 05, 2018. Visit Reason for Visit: Left Knee Medial Meniscus Tear Discharge Discharge Diagnosis / Problem: Left knee medial meniscus tear Discharge Goals Goal(s): Decrease discomfort, Improve function, Increase independence Medications Stopped Medications Name(s): No Ibuprofen since last Monday Activity Recommendations Activity Limitations: per Instructions/Follow-up section Weightbearing Status: Left weightbearing (as tolerated) Anesthesia . Post Anesthesia Instructions: If you have had General Anesthesia or IV Sedation: * Do not drive today. * Resume driving when surgeon permits. * Do not make important decisions or sign legal documents today. * Call surgeon for: 1. Temperature elevations greater than 101 degrees F. 2. Uncontrollable pain. 3. Excessive bleeding. 4. Persistent nausea and vomiting. 5. Medication intolerance (nausea, vomiting or rash). * For nausea and vomiting use only clear liquids such as: tea, soda, bouillon until nausea subsides, then gradually increase diet as tolerated. * If you have any concerns or questions, call your surgeon's office. If physician is unavailable and it is an emergency, call 911 or go to the nearest emergency room. . Instructions / Follow-Up Instructions / Follow-Up The following are instructions to follow after your Arthroscopic Knee Surgery. ACTIVITY RECOMMENDATIONS: * Minimize activity until your first visit after surgery. * No excessive walking, jogging, sports or laboring. * Return to activity is individualized. Most patients are able to return to every day activities within one month. * Return to sports or intensive labor usually occurs at 2-3 months. * Driving is not permitted until at least your first postoperative visit at a minimum. Please ask your doctor when it is safe to resume driving. If you have an automatic vehicle and your left leg has been operated on, then you may begin driving as soon as you are comfortable and can drive safely. SCHOOL/WORK RECOMMENDATIONS: * You may return to sedentary work or school when you are feeling more comfortable. This is usually 3-7 days after surgery. * Expect increased discomfort with increased activity. Continue to elevate and ice the leg as much as possible. MEDICATIONS: * You will have a prescription for pain medication and an anti-inflammatory medication after surgery. * Use the pain medication for severe pain and the anti-inflammatory for less severe pain. Once the pain medication has run out, try to use the anti-inflammatory medication. If this is not effective, contact the office for assistance. * The pain medication may cause nausea, constipation and drowsiness. You should see how they affect you before driving or similar activity. * The anti-inflammatory medication may cause stomach upset and bleeding. If this occurs let your doctor know immediately . * Take a stool softener like Colace or a laxative like Senokot to prevent constipation. DIET: * Resume previous diet. SPECIAL CARE: ICE: You have the option of an ice cooler, gel packs or ice bags. * If you have an ice cooler, refer to the instructions for that device. The ice cooler may be used continuously. * If you do not have an ice cooler, you will need to use ice bags or gel packs. Do not apply ice directly to the skin. Use a thin dressing or sachin shirt between the skin and ice bag. Apply ice for 20-30 minutes and repeat every 2-4 hours. This is especially important for the first 7-10 days after surgery. Once the pain improves, use ice as needed. ELEVATION: * Keep your leg elevated at or above the level of your heart as much as possible. * Expect some increased discomfort and swelling if you are standing for any length of time. * When lying down, avoid placing anything under your knee. Rather, prop your leg up by placing several pillows under your heel or calf. DRESSING: * Your dressing will be changed at your first therapy appointment approximately 4-5 days after surgery. Band-aids, tape strips or gauze may be applied. You may then change your dressing daily. * Reapply dressing followed by the wrap or Tubi-graves registration specialist stockinet and EBIce cooling pad (if chosen). * Always wash your hands prior to touching the incision area. * Once the stitches are removed, you may leave the wound open to air or cover with an wrap or Tubi-graves registration specialist stockinet. * If you have been given a white elastic stocking (DANETTE hose), wear as much as possible for the first 1-3 weeks depending on swelling. * Expect some bloody drainage for the first few days after surgery. * Leave the tape strips, if present, in place for 5-7 days. * Band-aids and gauze may be changed daily. CRUTCHES: * You will need to use crutches after surgery. * You may gradually progress to full weight bearing as tolerated and wean off the crutches unless otherwise advised. * Your therapist can provide assistance weaning off crutches. * Patients who have a microfracture done may need to be toe-touch weight- bearing for 4-6 weeks. BATHING: * You may shower or sponge-bathe immediately after surgery. * The dressing will need to be covered with a plastic bag or plastic wrap until the dressing is changed on the fourth or fifth day after surgery. * Once the dressing has been changed on the fourth or fifth day after surgery, you may shower and get the incision wet. * Wash with regular soap and water. * Do not bathe (submerge the incision), soak, swim or use a hot tub until the incision is completely healed over with normal skin and the doctor has given the OK to proceed. * There is no need to apply any ointments, powders or salves to your incision. * Do not apply alcohol or hydrogen peroxide directly to the incision. * Diluted peroxide (50:50 mixture with sterile saline) may be used to clean dried blood from around the incision area. BRACE: * Bracing is generally not needed after routine Arthroscopic Knee surgery. THERAPY: * You will begin therapy four or five days after surgery. * Organized therapy with the therapist is important for the first 4-6 weeks after surgery. During that time you will attend therapy 1-3 times per week. * You will also need to do daily exercises for range of motion and strength as instructed. PROBLEMS/QUESTIONS: * If you have any problems such as severe pain, numbness, tingling or high fevers or if you have any questions, please contact the office at [phone]. * It is not uncommon to have some numbness and tingling after the surgery especially if you have had a nerve block done. This should gradually improve over the first 1- 2 days. If this persists longer or worsens please contact the office. FOLLOW UP VISIT: * If not already scheduled, please call the office at to schedule a follow-up appointment for 10 days, 6 weeks and 3 months after surgery. * You have a physical therapy appointment on 04/09/18 at 9:00 a.m. * You have a follow up appointment with Dr. Dowling on 04/20/18 at 9:45 a.m. Diet Recommendations Home Diet: no limitations, resume previous diet Pending Studies Studies pending at discharge: no Medical Emergencies . Who to Call and When: Medical Emergencies: If at any time you feel your situation is an emergency, please call 911 immediately. . Non-Emergent Contact Non-Emergency issues call your: Surgeon Call Non-Emergent contact if: temperature is above 101, your pain is not controlled, your pain is worsening, your pain is unusual for you, wound has increased drainage, wound has increased redness, wound has increased pain, you have any medication questions . . "Provider Documentation" section prepared by Blanche Early. . [place] Drug Monitoring Program Search Results: patient reviewed within database, no issues identified
--- NOTE | 2018-04-05 08:15 | [facility] Post Operative Brief Note ---
Immediate Operative Summary Operative Date Apr 05, 2018. Pre-Operative Diagnosis Left Knee Medial Meniscus Tear Post-Operative Diagnosis same, lateral meniscus tear, chondromalacia Procedure(s) Performed Left Knee Arthroscopy, Partial Medial and Lateral Meniscectomies and Chondroplasty Surgeon Dr. Baljinder Dowling Contact Agent Surgeon(s) none Estimated Blood Loss 5ML Findings Consistent with Post-Op Diagnosis Specimens None Drains None Anesthesia Type General Complication(s) none Disposition Accompanied Pt To Recover: no Disposition: Recovery Room / PACU
--- NOTE | 2018-04-05 08:47 | Anesthesia Progress Nt - [facility] ---
Anesthesia Post Op Note Date & Time Apr 05, 2018 at 08:47 Vital Signs Pain Intensity: 4 Vital Signs Past 12 Hours Date Time Temp Pulse Resp B/P (MAP) Pulse Ox O2 Delivery O2 Flow Rate FiO2 04/05/18 08:37 Room Air 04/05/18 08:22 36.3 75 20 111/82 98 Diffusion Mask 5 04/05/18 06:31 36.7 60 18 137/87 (104) 96 Room Air Notes Mental Status: alert / awake / arousable, participated in evaluation Pt Amnestic to Procedure: Yes Nausea / Vomiting: adequately controlled Pain: adequately controlled Airway Patency, RR, SpO2: stable & adequate BP & HR: stable & adequate Hydration State: stable & adequate Anesthetic Complications: no major complications apparent
[2018-04-05 09:01] VITALS: TEMP 36.4
[2018-04-05 09:43] VITALS: BP 136/83; PULSE 59; O2SAT 99
--- NOTE | 2018-04-05 16:43 | [facility] Operative Report ---
Operative Report Operative Date Apr 05, 2018. Pre-Operative Diagnosis Left Knee Medial Meniscus Tear Post-Operative Diagnosis same, lateral meniscus tear, chondromalacia Procedure(s) Performed Left Knee Arthroscopy, Partial Medial and Lateral Meniscectomies and Chondroplasty Surgeon Dr. Baljinder Dowling [employer] Surgeon(s) none Estimated Blood Loss 5ML Findings As above Specimens None Anesthesia Laryngeal mask Complication(s) None Disposition Recovery Room / PACU Indications The patient is a 72-year-old male with a medial meniscus tear of his left knee. He would like to have surgery after discussion of treatment options risks and benefits. Description of Procedure Informed consent was obtained. The patient was identified . The operative site was identified as the left knee which I marked with my initials. A preop dose of IV antibiotics was given. The patient was positioned supine on the operating room table. A preoperative surgical timeout was performed. The examination under anesthesia was unremarkable. He had full range of motion and normal stability. A lateral post was used for stressing the knee. No tourniquet was applied. DVT prophylaxis intraoperatively with foot pumps. A laryngeal mask anesthetic was administered. Prior to start of the operation 1% lidocaine with epinephrine was injected into the knee joint, fat pad and portal sites. Inferolateral viewing portal superior lateral outflow portal and from more medial working portals were established. Diagnostic arthroscopy was performed. Medial lateral gutters were unremarkable. There was some fibrillation and grade 1 and perhaps low grade 2 chondrosis of the median and distal ridge of the patella and the trochlea. Otherwise cartilage looked fairly normal. The retropatellar fat pad was resected. The ACL and PCL were normal. The posterior medial lateral compartments were normal. Popliteal hiatus normal. In the lateral compartment there was grade 1 softening of the tibial plateau with fibrillation the lateral meniscus was intact except for a small radial tear anteriorly. This was about 3 mm in size. It was debrided with basket forceps and motorized shaver. The MCL is perforated to improve access to the medial compartment. A complex tear of the posterior horn of the meniscus was identified. Basket forceps and a motorized shaver were utilized to debride this back to a stable balanced and well contoured rim. The meniscal roots were intact. I removed perhaps 15-20% of the meniscus and left 1/2 cm rim. The meniscus was probed extensively and there was no hidden fragments. The tibial plateau showed a minor softening. The femoral condyle showed an area 1.5 cm in diameter of grade 2 chondrosis. 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 The arthroscopic portals were closed with 4-0 nylon. A soft sterile dressing was applied. The patient was awakened from anesthesia without difficulty and taken to the recovery room in stable condition. There were no specimens or complications. Counts were correct in the case. Blood loss was 10 cc. At the conclusion of the operation spoke patient's family and informed them of my findings and gave detailed postoperative instructions. He will start his Lovenox 12 hours postoperatively. He will be rehabilitated according to the partial medial meniscectomy protocol. I attest to the content of the Intraoperative Record and any orders documented therein. Any exceptions are noted below.
== END | disposition home or self-care (01) ==
LOC: X.SURG 06:14
PROVIDERS: ATTEND Physical Medicine & Rehabilitation Sports Medicine
DX: S83.232A Complex tear of medial meniscus, current injury, left knee, initial encounter (principal); X58.XXXA Exposure to other specified factors, initial encounter; M94.262 Chondromalacia, left knee; Z85.46 Personal history of malignant neoplasm of prostate; M19.90 Unspecified osteoarthritis, unspecified site; I10 Essential (primary) hypertension